=== PATIENT | male | born 1985 | race Caucasian/White ===

== ENCOUNTER 2018-02-11 07:54 | Emergency (ER) | payer SELFPAY ==
[2018-02-11 08:00] VITALS: BP 129/78
--- NOTE | 2018-02-11 08:34 | ER Document Report ---
ED Skin Rash/Insect Bite/Abscs - General Chief Complaint: Rash Stated Complaint: RASH Time Seen by Provider: 02/11/18 08:17 Mode of Arrival: Ambulatory Information source: Patient Notes: Patient is a 33-year-old male who presents to the ER today for rash to his shoulder and left arm that is itchy and hurts to touch her lay on, sometimes burning. Patient had chickenpox as a child. Patient states that the rash looks like blisters. He denies any fever, cough or upper respiratory symptoms. TRAVEL OUTSIDE OF THE [place] IN LAST 30 DAYS: No - Related Data Allergies/Adverse Reactions: No Known Allergies Allergy (Verified 02/11/18 07:55) Past Medical History - General Information source: Patient - Social History Smoking Status: Former Smoker Chew tobacco use (# tins/day): No Frequency of alcohol use: Heavy Drug Abuse: None Family History: Arthritis, CAD, DM, Hyperlipidemia, Hypertension Patient has suicidal ideation: No Patient has homicidal ideation: No Neurological Medical History: Reports: Hx Migraine, Hx Seizures - See the ER chart from 08/12/2013 Renal/ Medical History: Denies: Hx Peritoneal Dialysis Musculoskeletal Medical History: Reports Hx Musculoskeletal Trauma - Right arm and knee fracture Traumatic Medical History: Reports: Hx Fractures - Right arm and knee Past Surgical History: Reports: Hx Genitourinary Surgery - Pediatric - Immunizations Hx Diphtheria, Pertussis, Tetanus Vaccination: Yes Review of Systems - Review of Systems Constitutional: No symptoms reported EENT: No symptoms reported Cardiovascular: No symptoms reported Respiratory: No symptoms reported Gastrointestinal: No symptoms reported Genitourinary: No symptoms reported Male Genitourinary: No symptoms reported Musculoskeletal: No symptoms reported Skin: See HPI Hematologic/Lymphatic: No symptoms reported Neurological/Psychological: No symptoms reported Physical Exam - Vital signs Vitals: Temp Pulse Resp BP Pulse Ox 98.7 F 77 16 129/78 H 96 02/11/18 07:59 02/11/18 07:59 02/11/18 07:59 02/11/18 07:59 02/11/18 07:59 - Notes Notes: PHYSICAL EXAMINATION: GENERAL: Well-appearing and in no acute distress. HEAD: Atraumatic, normocephalic. EYES: Pupils equal round and reactive to light, extraocular movements intact, sclera anicteric, conjunctiva are normal. ENT: ear canals without erythema or foreign body, TMs pearly de la garza with good bony landmarks, nares patent, oropharynx clear without exudates. Moist mucous membranes. Airway patent NECK: Normal range of motion, supple without lymphadenopathy LUNGS: CTAB and equal. No wheezes rales or rhonchi. HEART: Regular rate and rhythm without murmurs EXTREMITIES: Normal range of motion, no pitting edema. No cyanosis. NEUROLOGICAL: Cranial nerves grossly intact. Normal sensory/motor exams. PSYCH: Normal mood, normal affect. SKIN: Warm, Dry, normal turgor, vesicles noted to the left forearm, upper arm and posterior shoulder, slight erythema surrounding, tender to palpation Course - Re-evaluation Re-evalutation: 02/11/18 08:30 Rash seems to follow dermatome C8 and appears as vesicles, consistent with shingles. Patient will be started on valacyclovir and prednisone. - Vital Signs Vital signs: Temp Pulse Resp BP Pulse Ox 98.7 F 77 16 129/78 H 96 02/11/18 07:59 02/11/18 07:59 02/11/18 07:59 02/11/18 07:59 02/11/18 07:59 Discharge - Discharge Clinical Impression: Varicella zoster Condition: Stable Disposition: HOME, SELF-CARE Additional Instructions: Return immediately for any new or worsening symptoms. Follow up with primary care provider, call tomorrow to make followup appointment. If you start to get rash elsewhere, please stop taking valacyclovir AND gabapentin. Prescriptions: Gabapentin 100 mg PO TID #60 capsule Prednisone 60 mg PO DAILY #21 tablet Valacyclovir HCl [Valacyclovir] 1,000 mg PO TID #21 tablet
== END 2018-02-11 08:46 | disposition home or self-care (01) ==
LOC: ER 07:54
DX: B02.9 Zoster without complications (principal); Z87.891 Personal history of nicotine dependence
CPT/HCPCS: 99282

== ENCOUNTER 2019-01-19 13:14 | Emergency (ER) | payer SELFPAY ==
[2019-01-19] MEDS ORDERED: ACETAMINOPHEN 325 MG TABLET PO ONE (13:45)
[2019-01-19] MEDS ORDERED: IBUPROFEN 600 MG TABLET PO ONE (13:45)
--- NOTE | 2019-01-19 13:48 | ER Document Report ---
HPI - HPI Time Seen by Provider: 01/19/19 13:36 Pain Level: 4 Context: Patient is a 33-year-old male who presents to the emergency department with a chief complaint of right knee pain. He was playing soccer last night at 1900 and in the middle of his kick a dog had Tissue and he felt a pop in his knee. He denies getting bit by the dog, but states that he has trouble walking. He is able to walk, but has a limp. He also has history of a break in that same knee when he was younger. He also has a history of a pneumothorax. - ROS Notes: REVIEW OF SYSTEMS: CONSTITUTIONAL : Denies recent illness. Denies recent unintentional weight loss. Denies fever, chills, or sweats. EENT: Denies eye, ear, throat, or mouth pain, discharge, or symptoms. Denies nasal or sinus congestion. CARDIOVASCULAR: Denies chest pain. RESPIRATORY: Denies shortness of breath, cough, congestion, difficulty breathing, or wheezing. GASTROINTESTINAL: Denies nausea, vomiting, and diarrhea. Denies abdominal pain. Denies constipation. GENITOURINARY: Denies difficulty urinating, burning, blood in urine, urgency or frequency. MUSCULOSKELETAL: See HPI SKIN: Denies rash, itchiness, or lesions HEMATOLOGIC : Denies easy bruising or bleeding. LYMPHATIC: Denies swollen, painful, enlarged glands. NEUROLOGICAL: Denies no numbness or tingling denies weakness. Denies headache. Denies altered mental status. Denies alteration in speech. PSYCHIATRIC: Denies stress, anxiety, alteration in sleep patterns, or depression. All other systems reviewed and negative. Past Medical History - General Information source: Patient - Social History Smoking Status: Former Smoker Frequency of alcohol use: Occasional Drug Abuse: Marijuana - Occasional Family History: Arthritis, CAD, DM, Hyperlipidemia, Hypertension Neurological Medical History: Reports: Hx Migraine, Hx Seizures - See the ER chart from 08/12/2013 Renal/ Medical History: Denies: Hx Peritoneal Dialysis Musculoskeletal Medical History: Reports Hx Musculoskeletal Trauma - Right arm and knee fracture Traumatic Medical History: Reports: Hx Fractures - Right arm and knee Past Surgical History: Reports: Hx Genitourinary Surgery - Pediatric - Immunizations Hx Diphtheria, Pertussis, Tetanus Vaccination: Yes Vertical Provider Document - CONSTITUTIONAL Agree With Documented VS: Yes Exam Limitations: No Limitations General Appearance: No Apparent Distress - INFECTION CONTROL TRAVEL OUTSIDE OF THE [place] IN LAST 30 DAYS: No - HEENT HEENT: Atraumatic, Normocephalic, PERRLA - NECK Neck: Normal Inspection - RESPIRATORY Respiratory: No Respiratory Distress - CARDIOVASCULAR Cardiovascular: Regular Rate, Regular Rhythm - MUSCULOSKELETAL/EXTREMETIES Musculoskeletal/Extremeties: Tender - Right medial knee. negative: FROM - Decreased range of motion to right knee - NEURO Level of Consciousness: Awake, Alert, Appropriate Motor/Sensory: No Motor Deficit, No Sensory Deficit - DERM Integumentary: Warm, Dry, No Rash Course - Re-evaluation Re-evalutation: 01/19/19 14:53 Patient has a knee joint effusion. He will be sent home with naproxen. No vascular compromise noted. Capillary refill less than 3 seconds. Patient will be sent home with crutches and a knee immobilizer. He will follow-up with his primary care provider. He will also follow-up with orthopedics in 2 weeks if his symptoms are not better. Follow-up precautions were given. Verbal discharge instructions were given to the patient. They verbalized understanding. They are stable for discharge. - Vital Signs Vital signs: Temp Pulse Resp BP Pulse Ox 98.6 F 102 H 18 136/83 H 97 01/19/19 13:15 01/19/19 13:15 01/19/19 13:15 01/19/19 13:15 01/19/19 13:15 Procedures - Immobilization Right Knee Pre-Proc Neuro Vasc Exam: Normal Immobilizer type: Crutches, Knee immobilizer Performed by: PCT Post-Proc Neuro Vasc Exam: Normal, Unchanged from pre-exam Alignment checked and good: Yes Discharge - Discharge Clinical Impression: Knee joint effusion Qualifiers: Laterality: right Qualified Code(s): M25.461 - Effusion, right knee Condition: Stable Disposition: HOME, SELF-CARE Instructions: Use of Crutches ([facility]), Ice & Elevation ([facility]), Knee Immobilizing Splint ([facility]) Additional Instructions: You are seen today in the emergency department for right knee pain. You have a joint effusion, which is swelling in the knee joint, which is causing you pain. Your pain should go away over time. Please take Tylenol 1000 mg and ibuprofen 600 mg every 6 hours for your pain. You are also being provided crutches and a knee immobilizer. Please use these. Rest, apply ice to your knee, keep the knee immobilizer on, and elevate your knee. Follow-up with orthopedic if your pain is not better in 2 weeks. Forms: Return to Work Referrals: HEATHER SORIANO MD [ACTIVE STAFF] - Follow up as needed [facility] [Provider Group] - Follow up as needed [facility] [Provider Group] - Follow up as needed
--- NOTE | 2019-01-19 14:21 | RADIOLOGY REPORT (SQ) ---
EXAM DESCRIPTION: KNEE RIGHT 4 VIEWS COMPLETED DATE/TIME: 01/19/2019 2:10 pm REASON FOR STUDY: right knee pain COMPARISON: None. NUMBER OF VIEWS: Four views. TECHNIQUE: AP, lateral, and both oblique radiographic images acquired of the right knee. LIMITATIONS: None. FINDINGS: MINERALIZATION: Normal. BONES: No acute fracture or dislocation. No worrisome bone lesions. JOINT: Joint improved SOFT TISSUES: No soft tissue swelling. No radio-opaque foreign body. OTHER: No other significant finding. IMPRESSION: joint effusion. No bony changes. TECHNICAL DOCUMENTATION: JOB ID: [id number] [employer]- All Rights Reserved Reading location - IP/workstation name: [email or web address] M
[2019-01-19 15:02] VITALS: BP 113/65
== END 2019-01-19 15:17 | disposition home or self-care (01) ==
LOC: ER 13:14
DX: M25.461 Effusion, right knee (principal); M25.561 Pain in right knee; Z87.891 Personal history of nicotine dependence; F12.10 Cannabis abuse, uncomplicated; Z87.81 Personal history of (healed) traumatic fracture
CPT/HCPCS: 99283; 73564; L1830

== ENCOUNTER 2020-07-13 14:27 | Emergency (ER) | payer OTHER ==
--- NOTE | 2020-07-13 14:55 | ER Document Report ---
ED Medical Screen (RME) - General Chief Complaint: STD Exposure Stated Complaint: POSSIBLE STD EXPOSURE Time Seen by Provider: 07/13/20 14:51 Mode of Arrival: Ambulatory Information source: Patient Notes: 35-year-old male presented to ED for constant burning in his penis. He states he does not have any discharge he does not have any burning with urination he does not have any sores that he needs can see. He states the inside of his penis just [place] constantly since Friday. He states he does not know of any 100 STD exposure he just knows it is constantly painful. He states he does use a vapor was a former smoker drinks alcohol 2-3 beers a day and is use marijuana occasionally. We will get blood clean and dirty urine and have him seen by another provider. I have greeted and performed a rapid initial assessment of this patient. A comprehensive ED assessment and evaluation of the patient, analysis of test results and completion of medical decision making process will be conducted by an additional ED providers. TRAVEL OUTSIDE OF THE [place] IN LAST 30 DAYS: No - Related Data Allergies/Adverse Reactions: No Known Allergies Allergy (Verified 02/11/18 07:55) Past Medical History Neurological Medical History: Reports: Hx Migraine, Hx Seizures - See the ER chart from 08/12/2013 Renal/ Medical History: Denies: Hx Peritoneal Dialysis Musculoskeltal Medical History: Reports Hx Musculoskeletal Trauma - Right arm and knee fracture Traumatic Medical History: Reports: Hx Fractures - Right arm and knee Past Surgical History: Reports: Hx Genitourinary Surgery - Pediatric - Immunizations Hx Diphtheria, Pertussis, Tetanus Vaccination: Yes Physical Exam - Vital signs Vitals: Temp Pulse Resp BP Pulse Ox 98.3 F 94 16 112/70 100 07/13/20 14:29 07/13/20 14:29 07/13/20 14:29 07/13/20 14:29 07/13/20 14:29 Course - Vital Signs Vital signs: Temp Pulse Resp BP Pulse Ox 98.3 F 94 16 112/70 100 07/13/20 14:29 07/13/20 14:29 07/13/20 14:29 07/13/20 14:29 07/13/20 14:29
[2020-07-13 15:29] LABS: ABSOLUTE EOSINOPHILS # (AUTO) 0.1 10^3/uL (0.0-0.6); ABSOLUTE LYMPHOCYTES (AUTO) 1.2 10^3/uL (0.5-4.7); ABSOLUTE MONOCYTES (AUTO) 0.5 10^3/uL (0.1-1.4); ABSOLUTE NEUT (AUTO) 2.8 10^3/uL (1.7-8.2); BASOPHILS % (AUTO) 0.4 % (0-2); EOSINOPHILS % (AUTO) 2.5 % (0-6); HEMATOCRIT 42.2 % (37.9-51.0); HEMOGLOBIN 14.8 g/dL (13.5-17.0); MEAN CORPUSCULAR HEMOGLOBIN 31.7 pg (27.0-33.4); MEAN CORPUSCULAR HGB CONC 35.1 g/dL (32.0-36.0); MEAN CORPUSCULAR VOLUME 91 fl (80-97); MONOCYTES % (AUTO) 11.2 % (3-13); PLATELET COUNT 209 10^3/uL (150-450); RED BLOOD COUNT 4.66 10^6/uL (4.35-5.55); RED CELL DISTRIBUTION WIDTH 12.1 % (11.5-14.0); SEGMENTED NEUTROPHILS % (AUTO) 59.9 % (42-78); TOTAL CELLS COUNTED % (AUTO) 100 %; WHITE BLOOD COUNT 4.6 10^3/uL (4.0-10.5)
[2020-07-13 15:32] LABS: APPEARANCE,URINE CLEAR; BILIRUBIN,URINE NEGATIVE (NEGATIVE); COLOR,URINE YELLOW; GLUCOSE, URINE NEGATIVE (NEGATIVE); KETONES,URINE TRACE mg/dL (NEGATIVE); LEUKOCYTE ESTERASE,URINE NEGATIVE (NEGATIVE); NITRITE,URINE NEGATIVE (NEGATIVE); PROTEIN,URINE NEGATIVE (NEGATIVE); URINE SPECIFIC GRAVITY 1.015
[2020-07-13 15:44] LABS: ALBUMIN 4.7 g/dL (3.5-5.0); ALKALINE PHOSPHATASE 46 U/L (38-126); ANION GAP 9 (5-19); ASPARTATE AMINO TRANSFERASE 42 U/L (17-59); BILIRUBIN,DIRECT 0.1 mg/dL (0.0-0.4); BILIRUBIN,TOTAL 0.5 mg/dL (0.2-1.3); BLOOD UREA NITROGEN 10 mg/dL (7-20); CALCIUM 9.5 mg/dL (8.4-10.2); CARBON DIOXIDE 27 mmol/L (22-30); CHLORIDE 102 mmol/L (98-107); GLUCOSE 86 mg/dL (75-110); POTASSIUM 4.4 mmol/L (3.6-5.0); TOTAL PROTEIN 7.3 g/dL (6.3-8.2)
[2020-07-13 18:19] LABS: CHLAM PCR NOT DETECTED (NOT DETECT)
[2020-07-13] MEDS ORDERED: PHENAZOPYRIDINE HCL 200 MG TABLET PO ONE (19:29)
--- NOTE | 2020-07-13 19:31 | ER Document Report ---
ED GI/ - General Chief Complaint: Penile Pain Stated Complaint: POSSIBLE STD EXPOSURE Time Seen by Provider: 07/13/20 14:51 Mode of Arrival: Ambulatory Notes: CHIEF COMPLAINT: Penile burning HPI: 35-year-old male who is presents for burning sensation on the inside of the urethra near the tip of the penis over the last 3 to 4 days. Feels better when he urinates. No abdominal or pelvic pain no testicular pain. No lesions noted by the patient. No discharge noted by the patient. ROS: See HPI - all other systems were reviewed and are otherwise negative Constitutional: no fever GI: no vomiting, no diarrhea, no abdominal pain : no dysuria Integumentary: no rash Allergy: no hives MEDICATIONS: I agree with the patient medications as charted by the RN. ALLERGIES: I agree with the allergies as charted by the RN. PAST MEDICAL HISTORY/PAST SURGICAL HISTORY: Reviewed and agree as charted by RN. SOCIAL HISTORY: Reviewed and agree as charted by RN. FAMILY HISTORY: No significant familial comorbid conditions directly related to patient complaint EXAM: Reviewed vital signs as charted by RN. CONSTITUTIONAL: Alert and oriented and responds appropriately to questions. Well-appearing; well-nourished HEAD: Normocephalic; atraumatic EYES: Conjunctivae clear, sclerae non-icteric ENT: normal nose; no rhinorrhea; moist mucous membranes NECK: Supple without meningismus CARD: symmetric distal pulses RESP: Normal chest excursion without splinting or tachypnea ABD/GI: Normal bowel sounds; non-distended; soft, non-tender, no rebound, no guarding; no palpable organomegaly or masses. : Circumcised male. Bilateral testicles are descended and nontender. No visible lesions. No visible urethral discharge. No visible or palpable inguinal or scrotal hernia on exam standing. BACK: The back appears normal EXT: Normal ROM in all joints; no cyanosis, no effusions, no edema SKIN: Normal color for age and race; warm; dry; good turgor NEURO: Moves all extremities equally; Motor and sensory function intact PSYCH: The patient's mood and manner are appropriate. Grooming and personal hygiene are appropriate. MDM: 35-year-old male with burning sensation on the inside of the urethra on the tip of the penis over the last 4 days. Feels better with urination. There are no visible lesions. Patient's lab work urinalysis and GC chlamydia screening done through triage process were all negative. Patient may have a nonvisualized lesion on the inner aspect of the urethra. We will give him a dose of Pyridium here to see if he feels better. He will follow up with urology. Had no flank pain or abdominal pain suggesting kidney stone. TRAVEL OUTSIDE OF THE [place] IN LAST 30 DAYS: No - Related Data Allergies/Adverse Reactions: No Known Allergies Allergy (Verified 07/13/20 19:25) Past Medical History - General Information source: Patient - Social History Smoking Status: Current Every Day Smoker Drug Abuse: Marijuana Family History: Arthritis, CAD, DM, Hyperlipidemia, Hypertension Neurological Medical History: Reports: Hx Migraine, Hx Seizures - See the ER chart from 08/12/2013 Renal/ Medical History: Denies: Hx Peritoneal Dialysis Musculoskeletal Medical History: Reports Hx Musculoskeletal Trauma - Right arm and knee fracture Traumatic Medical History: Reports: Hx Fractures - Right arm and knee Past Surgical History: Reports: Hx Genitourinary Surgery - Pediatric - Immunizations Hx Diphtheria, Pertussis, Tetanus Vaccination: Yes Physical Exam - Vital signs Vitals: Temp Pulse Resp BP Pulse Ox 98.3 F 94 16 112/70 100 07/13/20 14:29 07/13/20 14:29 07/13/20 14:29 07/13/20 14:29 07/13/20 14:29 Course - Vital Signs Vital signs: Temp Pulse Resp BP Pulse Ox 98.7 F 72 16 126/55 H 100 07/13/20 18:28 07/13/20 18:28 07/13/20 18:28 07/13/20 18:28 07/13/20 18:28 - Laboratory Results Result Diagrams: 07/13/20 15:07 07/13/20 15:07 Laboratory Results Interpreted: 07/13/20 07/13/20 15:07 15:07 ALT 66 H Urine Ketones TRACE H Urine Urobilinogen 2.0 H Critical Laboratory Results Reviewed: No Critical Results - Radiology Results Critical Radiology Results Reviewed: No Critical Results Discharge - Discharge Clinical Impression: Penile pain Condition: Stable Disposition: HOME, SELF-CARE Additional Instructions: Take the Pyridium for discomfort. Hydrate well at home. No sexual intercourse for the next 3 days. Follow-up with urology if symptoms persist. Your screening lab work tonight including gonorrhea and chlamydial screens were negative Prescriptions: Phenazopyridine HCl [Pyridium 100 Mg Tablet] 100 mg PO TID #9 tablet Referrals: CHERI MALHOTRA MD [NO LOCAL MD] - Follow up as needed
[2020-07-13 20:15] VITALS: BP 124/52
== END 2020-07-13 20:15 | disposition home or self-care (01) ==
LOC: ER 14:27
DX: N48.89 Other specified disorders of penis (principal); F17.200 Nicotine dependence, unspecified, uncomplicated
CPT/HCPCS: 36415; 80053; 81001; 85025; 87086; 87491; 87591; 99283